=== PATIENT | female | born 1980 | race Caucasian/White ===

== ENCOUNTER 2018-04-22 05:42 | Observation (INO) | payer OTHER ==
[2018-04-22] MEDS ORDERED: SURGIFOAM POWDER 1 GM KIT (06:51)
[2018-04-22] MEDS ORDERED: GELATIN SIZE 100 SPONGE (06:51)
[2018-04-22] MEDS ORDERED: CA CHLORIDE 10% 10 ML SYRINGE ×2 (06:54→08:27)
[2018-04-22] MEDS ORDERED: CEPASTAT LOZENGE MT (07:00)
[2018-04-22] MEDS ORDERED: CARISOPRODOL 350 MG TAB PO (07:00)
[2018-04-22] MEDS ORDERED: ALBUTEROL 0.083% (NEB) 2.5 MG/3 ML AMP HHN (07:00)
[2018-04-22] MEDS ORDERED: AL HYDROX/MG HYDROX/SIMETH 30 ML CUP PO (07:00)
[2018-04-22] MEDS ORDERED: METOCLOPRAMIDE 10 MG INJ IV (07:00)
[2018-04-22] MEDS ORDERED: HYDROmorphONE 0.5 MG/0.5 ML SYG IV (07:00)
[2018-04-22] MEDS ORDERED: HYDROmorphONE 0.2 MG/ML PCA IV (07:00)
[2018-04-22] MEDS ORDERED: ACETAMINOPHEN 325 MG TAB PO (07:00)
[2018-04-22] MEDS ORDERED: FENTAnyl 50 MCG/ML VIAL IV ×2 (07:00)
[2018-04-22] MEDS ORDERED: DIPHENHYDRAMINE 25 MG CAP PO (07:00)
[2018-04-22] MEDS ORDERED: DIPHENHYDRAMINE 50 MG INJ IV (07:00)
[2018-04-22] MEDS ORDERED: HYDROmorphONE 1 MG/5 ML IV SYRINGE IV ×2 (07:00)
[2018-04-22] MEDS ORDERED: HYDROCODONE/APAP (10/325) TAB PO (07:00)
[2018-04-22] MEDS ORDERED: BISACODYL 10 MG SUPP PR (07:00)
[2018-04-22] MEDS ORDERED: NALOXONE (0.4 MG/ML) INJ IV ×2 (07:00→14:00)
[2018-04-22] MEDS ORDERED: ONDANSETRON 4 MG INJ IV (07:00)
[2018-04-22] MEDS ORDERED: FENTAnyl 50 MCG/ML VIAL (07:12)
[2018-04-22] MEDS: CEFAZOLIN 1 GM/50 ML (PMX) 50 ML IVPB ×3 (07:29→23:01)
[2018-04-22] MEDS ORDERED: ROCURONIUM 50 MG INJ (08:27)
[2018-04-22] MEDS ORDERED: SUGAMMADEX SODIUM 200 MG/2 ML VIAL IV (08:27)
[2018-04-22] MEDS ORDERED: SUCCINYLCHOLINE CHLORIDE 100 MG/5 ML SYG IV (08:27)
[2018-04-22] MEDS ORDERED: LIDOCAINE 100 MG SYRINGE (08:27)
[2018-04-22] MEDS ORDERED: PROPOFOL 20 ML (08:27)
[2018-04-22] MEDS ORDERED: CEFAZOLIN 1 GM INJ (08:27)
[2018-04-22] MEDS: BUPIVACAINE 0.25% (MPF) 30 ML INJ (08:32)
[2018-04-22] MEDS: BUPIVACAINE 0.5%/EPI (SDV) 30 ML INJ (08:33)
[2018-04-22] MEDS: HEPARIN 1000 UNITS/ML 10 ML INJ (08:33)
[2018-04-22] MEDS: POLYMYXIN/BACITRACIN 1L IRRIG (08:34)
[2018-04-22] MEDS: THROMBIN 5000 UNIT VIAL (08:34)
[2018-04-22] MEDS: MEPERIDINE 25 MG INJ IV (09:05)
[2018-04-22] MEDS: ONDANSETRON 4 MG INJ IV ×2 (09:07→14:17)
[2018-04-22] MEDS: HYDROmorphONE 1 MG/5 ML IV SYRINGE IV (09:10)
[2018-04-22] MEDS: DIPHENHYDRAMINE 50 MG INJ IV (09:21)
[2018-04-22] MEDS: HYDROCODONE/APAP (10/325) TAB PO (11:18)
[2018-04-22] MEDS: D5W-0.45 NACL + KCL 20 MEQ 1,000 ML IV (11:19)
[2018-04-22] MEDS: OXYCODONE/ACETAMINOPHEN (5/325) TAB PO ×3 (14:24→23:01)
[2018-04-22] MEDS: DOCUSATE SODIUM 100 MG CAP PO (20:46)
[2018-04-23] MEDS: OXYCODONE/ACETAMINOPHEN (5/325) TAB PO ×3 (03:47→12:38)
[2018-04-23 05:03] LABS: ADD MAN DIFF? NO
[2018-04-23 05:07] LABS: WHITE BLOOD COUNT 8.4 10^3/ul (4.8-10.8)
[2018-04-23 05:07] LABS: BASOPHIL # 0.1 10^3/ul (0.0-0.1); BASOPHILS % 0.8 % (0.0-2.0); EOSINOPHILS # 0.4 10^3/ul (0.0-0.5); EOSINOPHILS % 4.6 % (0.0-7.0); HEMATOCRIT 36.4 % (37.0-47.0); LYMPHOCYTES # 2.8 10^3/ul (0.8-2.9); LYMPHOCYTES % 33.1 % (15.0-51.0); MEAN CORPUSCULAR HEMOGLOBIN 30.2 pg (29.0-33.0); MEAN CORPUSCULAR VOLUME 91.5 fl (82.0-101.0); MEAN PLATELET VOLUME 9.4 fl (7.4-10.4); MONOCYTE # 0.8 10^3/ul (0.3-0.9); MONOCYTES % 9.2 % (0.0-11.0); NEUTROPHIL # 4.4 10^3/ul (1.6-7.5); NEUTROPHILS % 51.9 % (39.0-77.0); PLATELET COUNT 328 10^3/UL (140-415); RED BLOOD COUNT 3.98 10^6/ul (4.20-5.40); RED CELL DISTRIBUTION WIDTH 12.6 % (11.5-14.5)
[2018-04-23 05:31] LABS: ANION GAP 11 (5-13); BLOOD UREA NITROGEN 5 mg/dl (7-20); CALCIUM 8.8 mg/dl (8.4-10.2); CARBON DIOXIDE 30 mmol/L (21-31); CHLORIDE 102 mmol/L (97-110); CREATININE 0.66 mg/dl (0.44-1.00); Estimated GFR > 60 mL/min (>60); GLUCOSE 105 mg/dl (70-220); MAGNESIUM 1.9 mg/dl (1.7-2.5); POTASSIUM 4.4 mmol/L (3.5-5.1); SODIUM 143 mmol/L (135-144)
[2018-04-23] MEDS: PANTOPRAZOLE 40 MG INJ IV (05:46)
[2018-04-23] MEDS: DOCUSATE SODIUM 100 MG CAP PO (08:53)
[2018-04-23] MEDS: CYCLOBENZAPRINE 10 MG TAB PO (13:41)
== END 2018-04-23 16:30 | disposition home or self-care (01) ==
LOC: SDS 05:42 → MS1 10:27 → SDS 10:46 → REC 10:47 → MS1 11:08
DX: M51.17 Intervertebral disc disorders with radiculopathy, lumbosacral region (principal)
CPT/HCPCS: 63030; 72020; 80048; 83735; 85025; 86999; 88304; 97116; 97162; 97530